=== PATIENT | female | born 1960 | race Caucasian/White ===

== ENCOUNTER 2017-01-26 14:27 | Emergency (ER) | payer OTHER ==
[~2017-01-26] VITALS: Ht 170.2 cm; Wt 74.8 kg
[~2017-01-26 14:27] MED LIST: ADVIL200 MG PO; ALBUTEROL 3 ML3 ML INH; CHERATUSSIN AC120 ML PO; GUAIFENESIN-COD10 ML PO; MEDROL4 M2 PO; MOBIC15 MG PO; NAPROSYN500 M1 PO; NORCO 325 MG-51 TAB PO; PREDNISONE 20MG20 MG PO; PREMPRO 0.45-11 EACH PO; PROAIR HFA0.09 MG/Ac INH; PROAIR HFA8.5 GM INH; ROBITUSSIN W/CO10 ML PO; TESSALON PERLE100 MG PO; VICODIN5-300 PO; ZITHROMAX Z-PA250 M1 PO; ZITHROMAX250 M2 PO
--- NOTE | 2017-01-26 16:23 | ED GI/GU/ABDOMINAL COMPLAINT ---
History of Present Illness General Chief Complaint: General Adult Stated Complaint: BLOODY STOOL Source: patient, old records Exam Limitations: no limitations Allergies Coded Allergies: morphine (HIVES 05/08/16) oxycodone (N/V 05/08/16) Triage Note: PT STATES SHE HAS DARK BLOOD IN STOOL, TWICE TODAY. LLQ PAIN SINCE THIS MORNING. +NAUSEA Triage Nurses Notes Reviewed? yes ? N Is pt currently ? No HPI: 56 year old female presents complaining of dull LLQ pain and dark red blood per rectum. Pain in bright red blood per rectum onset this morning. Patient has had approximately 3 episodes of rectal bleeding since onset. Patient reports that the blood is dark red. Pain is moderate. No exacerbating or alleviating factors. Mild associated nausea. Patient denies fevers, chills, vomiting (AURELIO CURRAN) Vital Signs & Intake/Output Vital Signs & Intake/Output Vital Signs Date Time Temp Pulse Resp B/P Pulse O2 O2 Flow FiO2 Ox Delivery Rate 01/26 2030 97.6 63 18 123/77 96 Room Air 01/26 1833 97.3 60 18 110/63 96 Room Air 01/26 1727 Room Air ED Intake and Output 01/27 0000 01/26 1200 Intake Total 0 Output Total Balance 0 Intake, Oral 0 Patient 165 lb Weight Reconcile Medications Conjugated Estrogen Medroxypr (Prempro 0.45-1.5 MG Tablet) 1 EACH TABLET 1 TAB PO DAILY HORMONE (Reported) Hydrocodone/Acetaminophen (Vicodin 5-300 MG Tablet) 5 MG-300 MG TABLET 1 TAB PO BID PAIN Ondansetron HCl (Zofran) 4 MG TABLET 1 TAB PO Q6-8P PRN NAUSEA (ANDREA ROSADO) Past History Travel History Traveled to [place] past 21 day No Medical History Any Pertinent Medical History? 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 No (AURELIO CURRAN) Review of Systems Review of Systems Constitutional: Denies: chills, fever. EENTM: Reports: no symptoms. Respiratory: Denies: cough, short of breath. Cardiovascular: Denies: chest pain. GI: Reports: see HPI. Genitourinary: Reports: no symptoms. Musculoskeletal: Reports: no symptoms. Skin: Reports: no symptoms. Neurological/Psychological: Reports: no symptoms. Hematologic/Endocrine: Reports: see HPI, bleeding. Immunologic/Allergic: Reports: no symptoms. (AURELIO CURRAN) Physical Exam Physical Exam General Appearance: well developed/nourished, alert, awake Head: atraumatic, normal appearance Eyes: Bilateral: normal appearance, PERRL, EOMI. Ears, Nose, Throat, Mouth: hearing grossly normal, moist mucous membrane Neck: normal inspection, supple, full range of motion Respiratory: normal breath sounds, chest non-tender, no respiratory distress, lungs clear Cardiovascular: regular rate/rhythm Gastrointestinal: normal bowel sounds, soft, non-tender, nontender throughout, no rebound, no rigidity, no guarding Rectal: with MST bree present during exam: small amount of gross blood in the rectal vault. Stool brown. Small external hemorrhoid, nontender. Back: normal inspection, normal range of motion Extremities: normal range of motion Neurologic/Psych: no motor/sensory deficits, awake, alert, oriented x 3, normal gait, normal mood/affect Skin: intact, normal color, warm/dry Core Measures ACS in differential dx? No Severe Sepsis Present: No Septic Shock Present: No (AURELIO CURRAN) Progress Differential Diagnosis: COLITIS(INFECTIOUS VERSUS ISCHEMIC VERSUS INFLAMMATORY) DIVERTICULITIS, UPPER VERSUS LOWER gi BLEED Initial ED EKG: none Hand-Off Endorsed To: ANDREA ROSADO Endorsed Time: 1751 Pending: CT (AURELIO CURRAN) Plan of Care: Laboratory Tests 01/26/171929: Lactic Acid Cancelled Was discussed with by Aurelio Cao PA-C for handoff Patient was reevaluated on multiple occasions was in no apparent distress and had significant resolution of pain with Dilaudid medications. CT scan was unremarkable for acute process. Patient was able tolerate by mouth and discharged. Patient vital signs were stable for discharge. I strongly advised patient to follow up with gastroenterology if symptoms continue and patient will comply. (BECKY FOX,ANDREA) Comments: PATIENT: JULIANA BRUNER PRESENT AGE: 56 PATIENT ACCOUNT NO: [id number] : 61 LOCATION: [facility] ORDERING PHYSICIAN: AURELIO FOX SERVICE DATE: 01/26/17496 EXAM TYPE: CAT - CT ABD & PELVIS W ORAL & IV CO EXAMINATION: CT ABDOMEN AND PELVIS WITH CONTRAST CLINICAL INFORMATION: Left lower quadrant pain and rectal bleeding. COMPARISON: CT abdomen and pelvis without contrast 01/03/2013. TECHNIQUE: Multidetector volumetric imaging was performed of the abdomen and pelvis before and after the IV administration of 95 mL of Optiray 320 intravenous contrast. Sagittal and coronal reformatted images were obtained on the technologist's workstation. DLP: 414 mGy-cm FINDINGS: LUNG BASES: The visualized lung bases are unremarkable. LIVER, GALLBLADDER, AND BILIARY TREE: The liver is normal in size, shape, and attenuation. No focal hepatic lesion or biliary ductal dilatation is present. The gallbladder is unremarkable with no evidence of radiopaque gallstones, gallbladder wall thickening, or obvious pericholecystic inflammatory changes. PANCREAS: Unremarkable. SPLEEN: Unremarkable. ADRENAL GLANDS: Unremarkable. KIDNEYS AND URETERS: The kidneys are normal in size and enhance homogeneously, without focal lesions. There is no appreciable nephrolithiasis or hydroureteronephrosis of either kidney or renal collecting system. No ureteral stones are identified. BLADDER: Unremarkable. GASTROINTESTINAL TRACT: Normal anatomic orientation of the stomach relative to the duodenum. Normal caliber of abdominal and pelvic bowel loops, without evidence of obstruction or ileus. No circumferential bowel wall thickening with surrounding inflammatory changes to suggest an underlying infectious or inflammatory enterocolitis. Normal-appearing retrocecal appendix within the right lower quadrant of the abdomen. No organizing intra-abdominal fluid collections or free intraperitoneal air. ABDOMINAL WALL: No significant hernia is appreciated. LYMPH NODES: No significant abdominal or pelvic adenopathy. VASCULAR: Patent abdominal vasculature. Normal course and caliber of the abdominal aorta and its branching vessels, without aneurysmal dilatation. PELVIC VISCERA: Unremarkable. OSSEOUS STRUCTURES: No acute osseous abnormality. Mechanical hardware related to lumbar fusion at L5-S1. No visible destructive osseous lesions. IMPRESSION: No acute findings within the abdomen or pelvis to explain patient symptomatology. DICTATED BY: HOMA BOLANOSPARK DATE/TIME DICTATED:01/26/171937 (ANDREA ROSADO) Departure Departure Condition: Stable Departure Forms: Customer Survey General Discharge Information (AURELIO CURRAN) Departure Disposition: HOME OR SELF CARE Clinical Impression Primary Impression: Abdominal pain Secondary Impressions: Rectal bleed Referrals: BECKY DUTTA APRN (PCP/Family) TYLER VANCE MD Additional Instructions: As discussed begin a 24-hour clear liquids and bland diet to rest your bowels. Begin the prescription of Vicodin for breakthrough pain relief. Begin the prescription of Zofran for future nausea. Prescriptions awaiting at [facility] pharmacy. If no better by tomorrow follow-up with triage assistant Dr. Vance. If symptoms worsen return to the emergency room Prescriptions: Current Visit Scripts Hydrocodone/Acetaminophen (Vicodin 5-300 MG Tablet) 1 TAB PO BID #6 TAB Ondansetron HCl (Zofran) 1 TAB PO Q6-8P PRN NAUSEA #15 TAB (NADREA ROSADO) PA/MIDDLE SCHOOL TUTOR Co-Sign Statement Statement: ED Attending supervision documentation- [] I saw and evaluated the patient. I have also reviewed all the pertinent lab results and diagnostic results. I agree with the findings and the plan of care as documented in the PA's/MIDDLE SCHOOL TUTOR's documentation. [x] I have reviewed the ED Record and agree with the PA's/MIDDLE SCHOOL TUTOR's documentation. [] Additions or exceptions (if any) to the PAs/MIDDLE SCHOOL TUTOR's note and plan are summarized below: [] (ELIZABET ESPINOZA DO
[2017-01-26 16:53] LABS: ABSOLUTE BASOPHIL COUNT 0 /CUMM (0.0-0.2); ABSOLUTE EOSINOPHIL COUNT 0.1 /CUMM (0.0-0.7); ABSOLUTE GRANULOCYTE CT 3.3 /CUMM (1.4-6.5); ABSOLUTE LYMPH COUNT 2.6 /CUMM (1.2-3.4); ABSOLUTE MONOCYTE COUNT 0.4 /CUMM (0.10-0.60); BASOPHIL % 0.7 % (0.0-2.0); GRANULOCYTE % 51.6 % (42.2-75.2); HEMATOCRIT 40.2 % (37-47); MEAN CORPUSCULAR HGB 30.1 PG (27.0-31.0); MEAN CORPUSCULAR HGB CONC 32.5 G/DL (33.0-37.0); MEAN CORPUSCULAR VOLUME 92.5 FL (81.0-99.0); MEAN PLATELET VOLUME 8.8 FL (7.4-10.4); PLATELET COUNT 221 /CUMM (130-400); RBC DISTRIBUTION WIDTH 13.9 % (11.5-14.5); RED BLOOD CELL CT 4.34 /CUMM (4.20-5.40); WHITE BLOOD CELL COUNT 6.5 /CUMM (4.8-10.8)
[2017-01-26 17:03] LABS: PT 11.4 SEC (9.4-12.5)
--- NOTE | 2017-01-26 19:59 | CT SCAN REPORT ---
EXAMINATION: CT ABDOMEN AND PELVIS WITH CONTRAST CLINICAL INFORMATION: Left lower quadrant pain and rectal bleeding. COMPARISON: CT abdomen and pelvis without contrast 01/03/2013. TECHNIQUE: Multidetector volumetric imaging was performed of the abdomen and pelvis before and after the IV administration of 95 mL of Optiray 320 intravenous contrast. Sagittal and coronal reformatted images were obtained on the technologist's workstation. DLP: 414 mGy-cm FINDINGS: LUNG BASES: The visualized lung bases are unremarkable. LIVER, GALLBLADDER, AND BILIARY TREE: The liver is normal in size, shape, and attenuation. No focal hepatic lesion or biliary ductal dilatation is present. The gallbladder is unremarkable with no evidence of radiopaque gallstones, gallbladder wall thickening, or obvious pericholecystic inflammatory changes. PANCREAS: Unremarkable. SPLEEN: Unremarkable. ADRENAL GLANDS: Unremarkable. KIDNEYS AND URETERS: The kidneys are normal in size and enhance homogeneously, without focal lesions. There is no appreciable nephrolithiasis or hydroureteronephrosis of either kidney or renal collecting system. No ureteral stones are identified. BLADDER: Unremarkable. GASTROINTESTINAL TRACT: Normal anatomic orientation of the stomach relative to the duodenum. Normal caliber of abdominal and pelvic bowel loops, without evidence of obstruction or ileus. No circumferential bowel wall thickening with surrounding inflammatory changes to suggest an underlying infectious or inflammatory enterocolitis. Normal-appearing retrocecal appendix within the right lower quadrant of the abdomen. No organizing intra-abdominal fluid collections or free intraperitoneal air. ABDOMINAL WALL: No significant hernia is appreciated. LYMPH NODES: No significant abdominal or pelvic adenopathy. VASCULAR: Patent abdominal vasculature. Normal course and caliber of the abdominal aorta and its branching vessels, without aneurysmal dilatation. PELVIC VISCERA: Unremarkable. OSSEOUS STRUCTURES: No acute osseous abnormality. Mechanical hardware related to lumbar fusion at L5-S1. No visible destructive osseous lesions. IMPRESSION: No acute findings within the abdomen or pelvis to explain patient symptomatology.
[2017-01-26] MEDS ORDERED: VICODIN 5-3001 EACH PO (20:16)
[2017-01-26] MEDS ORDERED: ZOFRAN4 M2 PO (20:16)
[2017-01-26 20:30] VITALS: BP 123/77
== END 2017-01-26 20:31 ==
LOC: ERH 14:27
PROVIDERS: Physician Assistant
DX: K62.5 Hemorrhage of anus and rectum (principal); R10.32 Left lower quadrant pain
CPT/HCPCS: 74177; 96374; 96375; J2405

== ENCOUNTER 2017-02-13 12:51 | Emergency (ER) | payer OTHER ==
[~2017-02-13] VITALS: Ht 170.2 cm; Wt 77.1 kg
[~2017-02-13 12:51] MED LIST changes: +VICODIN 5-3001 EACH PO; +ZOFRAN4 M2 PO
--- NOTE | 2017-02-13 13:57 | ED THROAT/DENTAL COMPLAINT ---
History of Present Illness General Chief Complaint: Sore Throat, Dental Pain Stated Complaint: DENTAL PAIN Source: patient Exam Limitations: no limitations Vital Signs & Intake/Output Vital Signs & Intake/Output Vital Signs Date Time Temp Pulse Resp B/P B/P Pulse O2 O2 Flow FiO2 Mean Ox Delivery Rate 02/13 1258 97.7 81 16 133/73 100 Room Air Allergies Coded Allergies: morphine (HIVES 05/08/16) oxycodone (N/V 05/08/16) Reconcile Medications Amoxicillin/Potassium Clav (Augmentin 875-125 Tablet) 875 MG-125 MG TABLET 1 TAB PO BID dental infection Conjugated Estrogen Medroxypr (Prempro 0.45-1.5 MG Tablet) 1 EACH TABLET 1 TAB PO DAILY HORMONE (Reported) Hydrocodone/Acetaminophen (Vicodin 5-300 MG Tablet) 5 MG-300 MG TABLET 1 TAB PO BID PAIN Naproxen (Naprosyn) 500 MG TABLET 1 TAB PO BID PRN pain Ondansetron HCl (Zofran) 4 MG TABLET 1 TAB PO Q6-8P PRN NAUSEA Triage Note: 56 Y/O FEMALE C/O DENTAL PAIN. STATES "ITS PROBABLY AN ABCESS". SYMPTOMS X 3 DAYS. STATES SHE TOOK 800MG IBUPROPHEN AROUND 0900 WITH NO RELIEF. ALSO STATES "IM ALSO HERE FOR MY KNEE. IT CRACKS WHEN I BEND IT" Triage Nurses Notes Reviewed? yes Onset: Gradual Duration: day(s): (1) Timing: remote history Injury Environment: home Severity: moderate Severity Numbers: 7 Modifying Factors: Improves With: immobilization. Worsens With: movement. HPI: Patient is a 56-year-old female with history of chronic knee pain presenting to the emergency department with dental pain and swelling since this morning. Patient also reporting right knee pain worsening over the past couple days. Denies any new injury. Denies fevers or chills. Tried calling her dentist who is awake and medication. No chest pain or palpitations. Denies taking anything to help with symptoms. No trouble swallowing. (LAVINIA GALLEGOS) Past History Travel History Traveled to [place] past 21 day No Medical History Any Pertinent Medical History? 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 No (LAVINIA GALLEGOS) Review of Systems Review of Systems Constitutional: Reports: no symptoms. Comments Review of systems: See HPI, All other systems negative. Constitutional, no chills fever or weight loss HEENT: No visual changes no sore throat no congestion Cardiovascular: No chest pain Skin, no jaundice no rashes Respiratory: No dyspnea cough sputum or hemoptysis GI: No nausea no vomiting Muscle skeletal: no back pain, no neck pain, Neurologic: No numbness no confusion Psych: No stress Immunology: No splenectomy or history of AIDS (LAVINIA GALLEGOS) Physical Exam Physical Exam General Appearance: well developed/nourished, no apparent distress, alert, awake , comfortable Mouth/Throat: very poor dentition, mild edema noted over the right gum base and anterior aspect, no drainable collection visualized. Comments: Well-developed well-nourished person in no acute distress HEENT: Pupils equally round and reactive to light and accommodation. Nose is atraumatic. External auditory canal and Tympanic membranes clear. Pharynx normal. No swelling or edema. Tender to palpation over the right lower jawline. Mild edema appreciated. Some erythema on the gumline. No drainage. Neck: Supple, no lymphadenopathy, normal range of motion without pain or tenderness Back: Nontender Cardiovascular: Regular rate and rhythms no murmurs rubs or gallops, normal JVP Respiratory: Chest nontender. No respiratory distress.breath sounds clear to auscultation bilaterally Extremity: No edema, pedal pulses are 2+ bilaterally. Tenderness to palpation over the medial lower aspect of the right patella. Near full range of motion somewhat limited secondary to pain. Neuro: Alert oriented x3 Skin: No appreciable rash on exposed skin, skin is warm and dry. Psych: Mood and affect is normal, memory and judgment is normal. Core Measures ACS in differential dx? No Severe Sepsis Present: No Septic Shock Present: No (LAVINIA GALLEGOS) Progress Differential Diagnosis: dental infection, gingivitis, knee sprain, contusion, chronic pain, medication seeking Plan of Care: Patient will be discharged on Augmentin and Broxson. She'll follow-up with her dentist. Also will follow-up with orthopedic for chronic right knee pain. (LAVINIA GALLEGOS) Departure Departure Time of Disposition: 1418 Disposition: HOME OR SELF CARE Condition: Stable Clinical Impression Primary Impression: Dental infection Secondary Impressions: Chronic knee pain Qualifiers: Laterality: unspecified laterality Qualified Codes: M25.569 - Pain in unspecified knee; G89.29 - Other chronic pain Referrals: BECKY DUTTA APRN (PCP/Family) Additional Instructions: Follow-up with her dentist when he returns from vacation. Take antibiotics and naproxen as prescribed help with symptoms. Return for worsening symptoms or concerns. Also follow-up with orthopedic regarding her chronic knee pain. Departure Forms: Customer Survey General Discharge Information Prescriptions: Current Visit Scripts Naproxen (Naprosyn) 1 TAB PO BID PRN pain #20 TAB Amoxicillin/Potassium Clav (Augmentin 875-125 Tablet) 1 TAB PO BID #20 TAB (LAVINIA GALLEGOS) PA/IRON SETTER Co-Sign Statement Statement: ED Attending supervision documentation- [] I saw and evaluated the patient. I have also reviewed all the pertinent lab results and diagnostic results. I agree with the findings and the plan of care as documented in the PA's/IRON SETTER's documentation. [X] I have reviewed the ED Record and agree with the PA's/IRON SETTER's documentation. [] Additions or exceptions (if any) to the PAs/IRON SETTER's note and plan are summarized below: [] (NAMRATA BOLANOS,SABRINA)
[2017-02-13] MEDS ORDERED: AUGMENTIN 875-1 EACH PO (14:20)
[2017-02-13] MEDS ORDERED: NAPROSYN500 M1 PO (14:20)
[2017-02-13 14:30] VITALS: BP 118/68
== END 2017-02-13 14:31 ==
LOC: ERH 12:51
DX: K04.7 Periapical abscess without sinus (principal); G89.29 Other chronic pain; M25.561 Pain in right knee

== ENCOUNTER 2017-04-02 18:08 | Emergency (ER) | payer OTHER ==
[~2017-04-02 18:08] MED LIST changes: +AUGMENTIN 875-1 EACH PO
[2017-04-02 18:52] VITALS: BP 126/75
--- NOTE | 2017-04-02 19:24 | ED MVC/FALL/TRAUMA COMPLAINT ---
History of Present Illness General Chief Complaint: Upper Extremity Problem Stated Complaint: PT HAS A PAIN IN THE RT SHOULDER Source: patient, old records Exam Limitations: no limitations Vital Signs & Intake/Output Vital Signs & Intake/Output Vital Signs Date Time Temp Pulse Resp B/P B/P Pulse O2 O2 Flow FiO2 Mean Ox Delivery Rate 04/02 1853 98.2 04/02 1852 98.2 66 16 126/75 98 Room Air Allergies Coded Allergies: morphine (HIVES 05/08/16) oxycodone (N/V 05/08/16) Reconcile Medications Amoxicillin/Potassium Clav (Augmentin 875-125 Tablet) 875 MG-125 MG TABLET 1 TAB PO BID dental infection Conjugated Estrogen Medroxypr (Prempro 0.45-1.5 MG Tablet) 1 EACH TABLET 1 TAB PO DAILY HORMONE (Reported) Hydrocodone/Acetaminophen ([place] 5-325 Tablet) 5 MG-325 MG TABLET 1 TAB PO Q4- 6 PRN PRN PAIN Hydrocodone/Acetaminophen (Vicodin 5-300 MG Tablet) 5 MG-300 MG TABLET 1 TAB PO BID PAIN Naproxen (Naprosyn) 500 MG TABLET 1 TAB PO BID PRN pain Ondansetron HCl (Zofran) 4 MG TABLET 1 TAB PO Q6-8P PRN NAUSEA Triage Note: TRIAGE: MECHANICAL FALL YESTERDAY AND ARRIVES WITH R SHOULDER PAIN. PAIN WITH MOVEMENT. ABLE TO SHRUG SHOULDERS AND RESIST GRAVITY. +PULSES. TOOK IBUPROFEN 800MG WITH NO RELIEF. MEDICATED WITH TYLENOL IN TRIAGE. Triage Nurses Notes Reviewed? yes Onset: Abrupt Duration: day(s): (2), constant Timing: recent history Severity: moderate Severity Numbers: 9 Injuries/Fall Location: upper extremity (RIGHT) Method of Injury: fall Loss of Consciousness: no loss of consciousness Modifying Factors: Worsens With: movement. Associated Symptoms: DENIES HPI: 56-year-old female presents to ER for evaluation with moderate to severe right shoulder pain 9 out of 10 throbbing aching better with rest and worse with movement for the past 2 days after she tripped and fell on the rain hitting her right shoulder. Pain is worse with range of motion she denies any clavicle back neck or chest pain no pain with inspiration no doll PT denies a head there is no loss of consciousness. She's been taking Profen with no improvement. No other associated symptoms there is no prodromal dizziness light as part of her fall. (ANDREA WHIPPLE) Past History Travel History Traveled to [place] past 21 day No Medical History Any Pertinent Medical History? 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 No (ANDREA WHIPPLE) Review of Systems Review of Systems Constitutional: Reports: see HPI. All Other Systems: Reviewed and Negative Comments Review of systems: See HPI, All other systems negative. Constitutional, no chills no fever, no malaise HEENT: No visual changes no sore throat no congestion Cardiovascular: No chest pain , no palpitation Skin: no rashes, no change in skin Respiratory: No dyspnea no cough no sputum GI: No nausea no vomiting, no diarrhea, Muscle skeletal: joint pain, no joint swelling, no back pain, no neck pain, Neurologic: No numbness no headache Psych: No stress Heme/endocrine: No bruising Immunology: No lymphadenopathy (ANDREA WHIPPLE) Physical Exam Physical Exam General Appearance: well developed/nourished Comments: Well-developed well-nourished patient in no apparent distress. HEENT: Atraumatic, extraocular motion intact Neck: Supple, FROM Back: FROM Cardiovascular: Regular rate and rhythms no murmurs rubs or gallops, Respiratory: Chest nontender.There were no bony deformities, no asymmetry. No respiratory distress. Patient speaking in full complete sentences. Breath sounds clear to auscultation bilaterally: NO W/R/R Shoulder: Atraumatic/Stable. Limited range of motion secondary to pain no obvious deformity no ecchymosis Elbow: Atraumatic/stable. FROM. No laxity Upper arm/Forearm: Atraumatic. Nontender. No edema, 5 out of 5 artist mannequin coloring strength noted to bilateral upper extremities Hand/Wrist: Atraumatic/stable. Skin intact. FROM Pulses: Normal/equal radial pulses bilaterally. Brisk cap refill Lower Extremities: full range of motion Neuro: awake, alert, and oriented to person, place and time. There were no obvious focal neurologic abnormalities. Skin: Warm & dry;No appreciable rash on exposed skin Psych: Mood affect normal, normal memory normal judgment. Core Measures ACS in differential dx? No Severe Sepsis Present: No Septic Shock Present: No (ANDREA WHIPPLE) Progress Differential Diagnosis: C/T/L spine injury, ext injury, FRACTURE DISLOCATION SPRAIN Plan of Care: Orders Procedure Date/time Status XRY-SHOULDER COMPLETE-RIGHT 04/02 1852 Active X-rays ordered from triage and sling was applied I discussed with the patient at length all of their results. I had an extensive conversation regarding need for close follow up with their primary care physician this week as well as return precautions. I answered all of their questions, they feel comfortable with the plan and follow-up care. I discussed with the patient/family the medications that they will receive. I gave them signs and symptoms that could indicate an adverse reaction. I have advised them to limit their activities until they can see how they respond to the medication. (ANDREA WHIPPLE) Diagnostic Imaging: Viewed by Me: Radiology Read. Discussed w/RAD: Radiology Read. Radiology Impression: PATIENT: JULIANA BRUNER PRESENT AGE: 56 PATIENT ACCOUNT NO: [id number] : 61 LOCATION: [facility] ORDERING PHYSICIAN: ANDREA FOX SERVICE DATE: 04/02/17-1851 EXAM TYPE: RAD - XRY- SHOULDER COMPLETE-RIGHT EXAMINATION: XR SHOULDER, RIGHT CLINICAL INFORMATION: Pain after fall COMPARISON: None TECHNIQUE: Four views of the right shoulder. FINDINGS: There is no evidence of fracture or dislocation. Alignment is anatomic. The glenohumeral and acromioclavicular joints appear maintained. The visualized ribs are intact and the imaged right lung is clear. The soft tissues appear unremarkable. IMPRESSION: No fracture or dislocation. DICTATED BY: ANUSHA KAT MD DATE/TIME DICTATED:04/02/171919 DRY WALL INSTALLATIONS MECHANIC:JORJE DATE/ TIME TRANSCRIBED:04/02/171919 CONFIDENTIAL, DO NOT COPY WITHOUT APPROPRIATE AUTHORIZATION. <Electronically signed in Other Vendor System> SIGNED BY: ANUSHA KAT MD 04/02/171923 (ANDREA WHIPPLE) Departure Departure Time of Disposition: 1931 Disposition: HOME OR SELF CARE Condition: Stable Clinical Impression Primary Impression: Shoulder sprain Referrals: LEFTY BOLANOS,BECKY ERNANDEZ APRN (PCP/Family) Additional Instructions: Rest ice shoulder sling as discussed. Follow up with orthopedist dr azul or primary care physician next week if symptoms persist. ibuprofen 800mg every 8 hours. norco as directed for breakthrough pain use caution as the narcotic addictive no driving or drinking alcohol while taking. This was sent to [facility] Departure Forms: Customer Survey General Discharge Information Prescriptions: Current Visit Scripts Hydrocodone/Acetaminophen ([place] 5-325 Tablet) 1 TAB PO Q4-6 PRN PRN PAIN #10 TAB (ANDREA WHIPPLE) PA/PUMP HOUSE ENGINEER Co-Sign Statement Statement: ED Attending supervision documentation- I saw and evaluated the patient. I have also reviewed all the pertinent lab results and diagnostic results. I agree with the findings and the plan of care as documented in the PA's/PUMP HOUSE ENGINEER's documentation. x I have reviewed the ED Record and agree with the PA's/PUMP HOUSE ENGINEER's documentation. [] Additions or exceptions (if any) to the PAs/PUMP HOUSE ENGINEER's note and plan are summarized below: [] (ANGLE BOLANOS,SHAILA)
[2017-04-02] MEDS ORDERED: NORCO 5-325 TA1 EACH PO (19:33)
== END 2017-04-02 20:00 ==
LOC: ERH 18:08
DX: S43.401A Unspecified sprain of right shoulder joint, initial encounter (principal); W01.0XXA Fall on same level from slipping, tripping and stumbling without subsequent striking against object, initial encounter; Y93.9 Activity, unspecified; Y92.9 Unspecified place or not applicable
CPT/HCPCS: 73030-RT

== ENCOUNTER 2018-01-31 10:56 | Emergency (ER) | payer OTHER ==
[~2018-01-31] VITALS: Ht 167.6 cm; Wt 72.6 kg
[~2018-01-31 10:56] MED LIST changes: +NORCO 5-325 TA1 EACH PO
[2018-01-31 11:11] VITALS: BP 106/67
--- NOTE | 2018-01-31 11:12 | ED UPPER/LOWER EXTREMITY COMPL ---
History of Present Illness General Chief Complaint: Foot or Ankle Injury Stated Complaint: HIT WITH SHOPPING CART IN LEFT HEEL Source: patient Exam Limitations: no limitations Vital Signs & Intake/Output Vital Signs & Intake/Output Vital Signs Date Time Temp Pulse Resp B/P B/P Pulse O2 O2 Flow FiO2 Mean Ox Delivery Rate 01/31 1111 97.6 73 18 106/67 97 Room Air Room Air Allergies Coded Allergies: morphine (HIVES 05/08/16) oxycodone (N/V 05/08/16) Reconcile Medications Amoxicillin/Potassium Clav (Augmentin 875-125 Tablet) 875 MG-125 MG TABLET 1 TAB PO BID dental infection Conjugated Estrogen Medroxypr (Prempro 0.45-1.5 MG Tablet) 1 EACH TABLET 1 TAB PO DAILY HORMONE (Reported) Hydrocodone/Acetaminophen ([place] 5-325 Tablet) 5 MG-325 MG TABLET 1 TAB PO Q4- 6 PRN PRN PAIN Hydrocodone/Acetaminophen (Vicodin 5-300 MG Tablet) 5 MG-300 MG TABLET 1 TAB PO BID PAIN Naproxen (Naprosyn) 500 MG TABLET 1 TAB PO BID PRN pain Ondansetron HCl (Zofran) 4 MG TABLET 1 TAB PO Q6-8P PRN NAUSEA Triage Nurses Notes Reviewed? yes Onset: Abrupt Duration: day(s): (1) Timing: no prior history Severity: moderate Severity Numbers: 7 Pain/Injury Location: Left: Heel. Method of Injury: direct blow Modifying Factors: Improves With: immobilization. Worsens With: movement. HPI: Patient is a 57-year-old female presenting to the emergency department with chief complaint of left heel pain 1 day after a shopping cart was accidentally pushed into her heel. Pain is currently moderate to severe worse with range of motion and palpation and ambulation. She's been icing at home, taking Tylenol with little relief. Decided to come in for evaluation. Denies any other injury. No nausea or vomiting, denies chest pain palpitations or shortness of breath. (Therese Dorado) Past History Medical History Any Pertinent Medical History? 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 No (Therese Dorado) Review of Systems Review of Systems Constitutional: Reports: no symptoms. Comments Review of systems: See HPI, All other systems negative. Constitutional, no chills fever or weight loss HEENT: No visual changes no sore throat no congestion Cardiovascular: No chest pain Skin, no jaundice no rashes Respiratory: No dyspnea cough GI: No nausea no vomiting Muscle skeletal: no back pain, no neck pain, Neurologic: No numbness Psych: No stress anxiety Immunology: No splenectomy or history of AIDS (Therese Dorado) Physical Exam Physical Exam General Appearance: well developed/nourished, no apparent distress, alert, awake , comfortable Comments: Well-developed well-nourished person in no acute distress HEENT: Atraumatic, normocephalic Neck: Normal inspection Cardiovascular: . Pulses are 2+ bilaterally. Respiratory: Chest nontender. No respiratory distress.breath sounds clear to auscultation bilaterally Extremity: No edema, tenderness to palpation on the posterior aspect of the left heel, pain increases with plantar and dorsiflexion of the left foot. No pain to palpation over the medial or lateral malleolus of the left ankle. Nontender to palpation over the dorsum of the left foot. Negative Sinha's test on the left leg. No calf tenderness to palpation over the left lower extremity. Neuro: Alert oriented x3, motor sensory normal Skin: Mild ecchymosis noted on the posterior aspect of the left heel approximately 4 cm x 4 cm in size. Otherwise skin unremarkable unexposed areas. Psych: Mood and affect is normal, memory and judgment is normal. (Therese Dorado) Progress Differential Diagnosis: contusion, dislocation, sprain, tendon injury Plan of Care: Orders Procedure Date/time Status XRY-HEEL, LEFT 01/31 1123 Active Diagnostic Imaging: Viewed by Me: Radiology Read. Discussed w/RAD: Radiology Read. Radiology Impression: PATIENT: JULIANA BRUNER PRESENT AGE: 57 PATIENT ACCOUNT NO: [id number] : 61 LOCATION: [facility] ORDERING PHYSICIAN: Therese FOX SERVICE DATE: 01/31/18-1123 EXAM TYPE: RAD - XRY-HEEL, LEFT EXAMINATION: XR CALCANEUS, LEFT CLINICAL INFORMATION: Rule out fracture. Pain status post injury. COMPARISON: None TECHNIQUE: Lateral and axial views of the left calcaneus were obtained. FINDINGS: The bones and soft tissues are normal. No fracture. Alignment is anatomic. Joint spaces are maintained. Small calcaneal heel spur. IMPRESSION: Normal left calcaneus. DICTATED BY: Mitch Novak MD DATE/TIME DICTATED:01/31/181236 METAL SPRAYER:JORJE DATE/TIME TRANSCRIBED:01/31/181236 CONFIDENTIAL, DO NOT COPY WITHOUT APPROPRIATE AUTHORIZATION. <Electronically signed in Other Vendor System> SIGNED BY: Mitch Novak MD 01/31/18 1241 (Therese Dorado) Departure Departure Time of Disposition: 124 Disposition: HOME OR SELF CARE Condition: Stable Clinical Impression Primary Impression: Contusion Qualifiers: Encounter type: initial encounter Contusion area: foot Laterality: left Qualified Code: S90.32XA - Contusion of left foot, initial encounter Referrals: Dagoberto Sun APRN (PCP/Family) Additional Instructions: Follow-up with your primary care physician in the next 5-7 days. Rest ice and elevate affected extremity. Wear Will wrap for support. Take [id number] Motrin and Tylenol as directed for any aches or pains. Return for worsening symptoms or concerns. Departure Forms: Customer Survey General Discharge Information (Therese Dorado) PA/CORPORATE QUALITY MANAGER Co-Sign Statement Statement: ED Attending supervision documentation- [] I saw and evaluated the patient. I have also reviewed all the pertinent lab results and diagnostic results. I agree with the findings and the plan of care as documented in the PA's/CORPORATE QUALITY MANAGER's documentation. [X] I have reviewed the ED Record and agree with the PA's/CORPORATE QUALITY MANAGER's documentation. [] Additions or exceptions (if any) to the PAs/CORPORATE QUALITY MANAGER's note and plan are summarized below: [] (Allegra BOLANOS,Julián Guthrie)
--- NOTE | 2018-01-31 12:41 | RADIOLOGY REPORT ---
EXAMINATION: XR CALCANEUS, LEFT CLINICAL INFORMATION: Rule out fracture. Pain status post injury. COMPARISON: None TECHNIQUE: Lateral and axial views of the left calcaneus were obtained. FINDINGS: The bones and soft tissues are normal. No fracture. Alignment is anatomic. Joint spaces are maintained. Small calcaneal heel spur. IMPRESSION: Normal left calcaneus.
== END 2018-01-31 12:59 ==
LOC: ERH 10:56
DX: S90.32XA Contusion of left foot, initial encounter (principal); W22.8XXA Striking against or struck by other objects, initial encounter; Y92.9 Unspecified place or not applicable; Y93.9 Activity, unspecified
CPT/HCPCS: 73650-LT